=== PATIENT | male | born 1950 | race Caucasian/White ===

== ENCOUNTER → 2016-07-15 | Outpatient (CLI) | payer OTHER ==
[~2016-07-15] MED LIST: ASPIRIN325 MG PO; ATENOLOL50 MG PO; LIPITOR40 MG PO; LISINOPRIL/HYDR1 TA2 PO
--- NOTE | 2016-07-15 11:35 | DIAGNOSTIC IMAGING REPORT ---
PROCEDURE: XR KNEE 4 VIEWS - LEFT INDICATION: KNEE JOINT PX ,LEFT TECHNIQUE: Four views. COMPARISON: None. FINDINGS: There is a narrowing of the medial joint space compartment with spur formation. IMPRESSION: 1. Osteoarthritis left knee. Medial compartment
== END ==
LOC: XR SRH 10:56
DX: M17.12 Unilateral primary osteoarthritis, left knee (principal)

== ENCOUNTER 2016-09-20 08:40 | Day surgery (SDC) | payer OTHER ==
[~2016-09-20] VITALS: Ht 180.3 cm; Wt 93.2 kg
--- NOTE | 2016-09-20 09:11 | NUR ---
PT ADMITTED FOR COLONOSCOPY, POSSIBLY EGD. PT CONFIRMED HIS NAME , PLANNED PROCEDURES, NPO STATUS, COMPLETION OF COLON PREP, MEDICATIONS AND ALLERGIES. PRE-OP TEACHING COMPLETED AND QUESTIONS ANSWERED. IV ACCESS ESTABLISHED.
--- NOTE | 2016-09-20 10:20 | Provider's Discharge Care Plan ---
Problem, Goal, Plan Problem List 1. Duodenal ulcer due to nonsteroidal anti-inflammatory drug (NSAID)
--- NOTE | 2016-09-20 10:20 | Provider's Discharge Care Plan ---
Problem, Goal, Plan Problem List 1. Duodenal ulcer due to nonsteroidal anti-inflammatory drug (NSAID)
--- NOTE | 2016-09-20 10:21 | NUR ---
PT IS AWAKE AND ALERT. PT DENIES PAIN OR NAUSEA. PT IS WARM AND COMFORTABLE. VSS. ABDOMEN IS SOFT.
--- NOTE | 2016-09-20 10:46 | NUR ---
PT RECEIVED FROM PACU AWAKE AND COMFORTABLE. UP TO BATHROOM PER PT'S REQUEST.
--- NOTE | 2016-09-20 11:15 | OPERATIVE REPORT ---
DATE OF SURGERY: 09/20/2016 SURGEON: Caesar Rivera MD PREOPERATIVE DIAGNOSIS: 1. Heme-positive stool POSTOPERATIVE DIAGNOSES: 1. Diverticulosis 2. Shallow duodenal ulcers PROCEDURE PERFORMED: 1. Colonoscopy 2. Esophagogastroduodenoscopy ANESTHESIA: Total IV general. INDICATIONS: The patient is a 66-year-old man with Hemoccult positive stool during an insurance physical. He is not noted to be anemic or have gross signs of bleeding. He had a colonoscopy about 3 years earlier. SURGICAL TECHNIQUE: The patient was taken to the endoscopy suite, where total IV general was administered and the patient was placed in the left lateral decubitus position. A well-lubricated colonoscope was advanced the length of the colon under direct vision. There were numerous diverticula in the sigmoid and descending colon, as well as a single diverticulum in the cecum. The tip of the cecum and ileocecal valve were visualized. The entire colon was inspected, with no bleeding sources, no tumors or polyps seen. A retroflexed view in the rectum was also normal. An upper GI endoscope was introduced. The esophagus and stomach were normal. The duodenum was examined and contained some shallow erosions, consistent with NSAID-induced ulceration. None of these were actively bleeding, and these were only mucosal and superficial. The rest of the stomach was normal, including a retroflexed view. The patient left in good condition, and no intraoperative complications were encountered.
--- NOTE | 2016-09-20 11:34 | NUR ---
PT ATE LIGHT SNACK AND DECLINES FURTHER FOOD. NO PAIN OR NAUSEA. DISCHARGE INSTRUCTIONS REVIEWED WITH PT AND QUESTIONS ANSWERED.
--- NOTE | 2016-09-20 11:52 | NUR ---
PT DISCHARGED HOME, AMBULATED TO EXIT ACCOMPANIED BY RN. BELONGINGS HOME WITH PATIENT.
[2016-09-20 14:37] VITALS: BP 117/64
== END 2016-09-20 11:40 | disposition home or self-care (01) ==
LOC: OR SRH 08:40 → SCU SRH 08:40 → OR SRH 10:15
DX: K57.30 Diverticulosis of large intestine without perforation or abscess without bleeding (principal); K26.9 Duodenal ulcer, unspecified as acute or chronic, without hemorrhage or perforation; I10 Essential (primary) hypertension; Z79.82 Long term (current) use of aspirin
CPT/HCPCS: 29229; 29240; 50004; 60001; 83526